=== PATIENT | female | born 1960 | race Two or more races ===

== ENCOUNTER 2023-08-17 04:25 | Day surgery (SDC) | payer OTHER ==
[2023-08-11 08:43] VITALS: BMI 29.8
[2023-08-17 11:08] VITALS: TEMP 97.8
[2023-08-17 13:03] VITALS: BP 127/64; PULSE 58; RESP 18
== END 2023-08-17 11:35 | disposition home or self-care (01) ==
LOC: JASU-ENDO 04:25
PROVIDERS: ATTEND Internal Medicine Gastroenterology
PROC: 0DBN8ZX Excision of Sigmoid Colon, Via Natural or Artificial Opening Endoscopic, Diagnostic (ICD-10-PCS; 2023-08-17)
PROC: 0DBP8ZX Excision of Rectum, Via Natural or Artificial Opening Endoscopic, Diagnostic (ICD-10-PCS; 2023-08-17)
PROC: 0DBM8ZX Excision of Descending Colon, Via Natural or Artificial Opening Endoscopic, Diagnostic (ICD-10-PCS; 2023-08-17)
PROC: 0DBH8ZX Excision of Cecum, Via Natural or Artificial Opening Endoscopic, Diagnostic (ICD-10-PCS; 2023-08-17)
PROC: 0DBK8ZX Excision of Ascending Colon, Via Natural or Artificial Opening Endoscopic, Diagnostic (ICD-10-PCS; principal; 2023-08-17 10:00)
DX: K64.8 Other hemorrhoids (principal)
CPT/HCPCS: 88305-TC

== ENCOUNTER 2023-09-12 04:01 | Day surgery (SDC) | payer OTHER ==
[2023-09-05 15:41] VITALS: BMI 29.8
[2023-09-12 09:54] VITALS: TEMP 97.2
[2023-09-12 10:08] VITALS: PULSE 54; RESP 16
[2023-09-12 10:39] VITALS: BP 140/80
== END 2023-09-12 10:47 | disposition home or self-care (01) ==
LOC: JASU-ENDO 04:01
PROVIDERS: ATTEND Internal Medicine Gastroenterology
PROC: 0DB78ZX Excision of Stomach, Pylorus, Via Natural or Artificial Opening Endoscopic, Diagnostic (ICD-10-PCS; 2023-09-12)
PROC: 0DB68ZX Excision of Stomach, Via Natural or Artificial Opening Endoscopic, Diagnostic (ICD-10-PCS; principal; 2023-09-12 09:45)
DX: K29.50 Unspecified chronic gastritis without bleeding (principal); K31.89 Other diseases of stomach and duodenum
CPT/HCPCS: 88305-TC; 88342-TC